=== PATIENT | female | born 1930 | race Caucasian/White ===

== ENCOUNTER 2018-05-10 14:33 | Inpatient (IN) | payer MEDICARE, OTHER ==
[~2018-05-10] VITALS: Ht 165.1 cm; Wt 74.0 kg
[~2018-05-10 14:33] MED LIST: ALLOPURINOL100 MG PO; CYMBALTA30 MG PO; FUROSEMIDE40 MG PO; METOPROLOL SUCC50 MG PO; NORVASC5 MG PO; PACERONE200 MG PO; SODIUM BIC PO
[2018-05-10] MEDS ORDERED: ALBUTEROL/IPRATROPIUM 3 ML NEB NEB ONE (16:00)
[2018-05-10] MEDS ORDERED: AZITHROMYCIN 500MG/NS 250 ML 250 ML IV ONE (16:00)
[2018-05-10] MEDS ORDERED: CEFTRIAXONE SOD 1 GM/NS 50 ML 50 ML IV SCH (16:00)
[2018-05-10] MEDS ORDERED: CEFTRIAXONE SOD 1 GM VIAL IV SCH (16:00)
[2018-05-10 16:06] LABS: BASOPHILS # (AUTO) 0.1 (0.0-0.1); BASOPHILS % 0.6 % (0.0-1.0); EOSINOPHILS # (AUTO) 0.4 (0.0-0.4); EOSINOPHILS % 4.8 % (0.0-6.0); HEMATOCRIT 35.3 % (34.2-44.1); HEMOGLOBIN 11.5 g/dL (12.0-16.0); LYMPHOCYTES # (AUTO) 1.7 (1.0-3.2); LYMPHOCYTES % 19.2 % (18.0-39.1); MEAN CORPUSCULAR HEMOGLOBIN 30.8 pg (28-32); MEAN CORPUSCULAR HGB CONC 32.6 g/dL (31-35); MEAN CORPUSCULAR VOLUME 94.6 fL (81-99); MONOCYTES # (AUTO) 0.7 (0.2-0.8); MONOCYTES % 8.3 % (4.4-11.3); NEUTROPHILS # (AUTO) 5.7 (2.1-6.9); NEUTROPHILS % 66.9 % (38.7-80.0); PLATELET COUNT 265 x10e3/uL (140-360); RED BLOOD COUNT 3.73 x10e6/uL (3.6-5.1); RED CELL DISTRIBUTION WIDTH 14.4 % (11.7-14.4)
--- NOTE | 2018-05-10 16:14 | Diagnostic Imaging Report ---
Examination: Single AP view of the chest. COMPARISON: None available. INDICATION: Difficulty taking deep breaths IMPRESSION: 1. Lines and Tubes: None 2. Lungs are well-inflated. 6 mm nodular density projecting in the right upper lung, which may represent a nodule or calcified granuloma. No consolidation or pulmonary edema. 3. Enlarged cardiac silhouette. Pulmonary vasculature is normal. 4. No acute bony abnormalities. Signed by: Dr. Jorge Shultz M.D. on 05/10/2018 4:10 PM
[2018-05-10 16:26] LABS: ALANINE AMINOTRANSFERASE 17 IU/L (0-55); ALBUMIN 2.8 g/dL (3.5-5.0); ALBUMIN/GLOBULIN RATIO 0.6 (0.8-2.0); ALKALINE PHOSPHATASE 87 IU/L (40-150); BLOOD UREA NITROGEN 44 mg/dL (7-26); BUN/CREATININE RATIO 31 (6-25); CALCIUM 9.1 mg/dL (8.4-10.2); CARBON DIOXIDE 22 mmol/L (22-29); CHLORIDE 101 mmol/L (98-107); CREATINE KINASE 87 IU/L (29-168); CREATININE, SERUM 1.41 mg/dL (0.57-1.11); EST GLOMERULAR FILTRATION RATE 35 ML/MIN (60-); GLUCOSE 95 mg/dL (74-118); LIPASE 44 U/L (8-78); SODIUM 134 mmol/L (136-145)
[2018-05-10] MEDS: SODIUM CHLORIDE 0.9% 1000ML 1,000 ML IV SCH (16:34)
[2018-05-10 16:59] LABS: B-TYPE NATRIURETIC PEPTIDE2 496.6 pg/mL (0-100)
[2018-05-10 17:34] LABS: ABG HCO3 19 mmol/L (23-28); ABG PCO2 33 mmHg (41-51); ABG PH 7.37 (7.31-7.41); ABG PO2 80 mmHg (80-105)
--- OUTSIDE RECORDS SUMMARY | 2018-05-10 19:14 | XMS REPORT ---
Author Author [facility] Address Unknown Phone Unavailable Care Team Providers Care Target Setter Name Role Phone Nicho MALLORY Unavailable Unavailable Problems This patient has no known problems. Allergies, Adverse Reactions, Alerts This patient has no known allergies or adverse reactions. Medications This patient has no known medications. Results Test Description Test Time Test Comments Text Results Atomic Results Result Comments CHEST SINGLE (PORTABLE) 2018-05-10 16:08:00 [place] [id number] Patient Name: SHAWNEE REHMAN MR #: [id number] : 1930 Age/Sex: 87/F Req #: [id number] Adm Physician: Ordered by: BRENTON MALLORY MD Report #: [id number] Location: ER Room/Bed: Procedure: [id number] DX/CHEST SINGLE (PORTABLE) Exam Date: 05/10/18 Exam Time: 1602 REPORT STATUS: Signed Examination: Single AP view of the chest. COMP ARISON: None available. INDICATION: Difficulty taking deep breaths IMPRESSION: 1. Lines and Tubes: None 2. Lungs are well-inflated. 6 mm nodular density projecting in the right upper lung, which may represent a nodule or calcified granuloma. No consolidation or pulmonary edema. 3. Enlarged cardiac silhouette. Pulmonary vasculature is normal. 4. No acute bony abnormalities. Signed by: Dr. Joanne Shultz M.D. on 05/10/2018 4:10 PM Dictated By: JOANNE SHULTZ MD 09 Transcribed By: JANAY on 05/10/181609 COPY TO: BRENTON MALLORY MD
[2018-05-10] MEDS ORDERED: IOPAMIDOL 370 MG/ML 200 ML INFUS..BTL INJ ONE (19:35)
[2018-05-10] MEDS ORDERED: SODIUM CHLORIDE 0.9% 50ML 50 ML ONE (19:35)
--- NOTE | 2018-05-10 20:40 | Diagnostic Imaging Report ---
EXAM: CT Chest WITH contrast 05/10/2018 5:34 PM INDICATION: ^sob ^[id number] ^[id number] COMPARISON: Chest radiograph 05/10/2018 TECHNIQUE: Spiral CT images of the chest were performed from the lung apices through the level of the adrenal glands after the IV contrast administration. Thin section reconstructions were obtained with special concentration on the pulmonary arteries. IV CONTRAST: 100 mL Omnipaque 300 ORAL CONTRAST: None COMPLICATIONS: None RADIATION DOSE: Total DLP: 580.7 mGy*cm Estimated effective dose: (DLP x 0.015 x size factor) mSv CTDIvol has been reviewed. It is below the limits set by the Radiation Protocol Committee (RPC). FINDINGS: LINES/ TUBES: None. PULMONARY ARTERIES: Complete occlusion of the left lower lobe pulmonary artery branch may be related to the collapse of the medial lower lobe. Linear filling defect in the proximal left lower lobe pulmonary artery before the stump. Linear hypodensity within the main left pulmonary artery. No filling defects within the main, right and segmental/subsegmental branches. The main pulmonary artery is enlarged measuring 3.7 cm in diameter. LUNGS AND AIRWAYS: Complete collapse of the medial basilar segment of the left lower lobe with associated mild bronchiectasis. Diffuse soft tissue density filling the medial left lower lobe bronchus. There is occlusion the medial left lower lobe pulmonary artery and vein. To a lesser extent, there are mild bronchiectasis and peribronchial wall thickening in the medial right lower lobe. Advanced bilateral emphysema. Diffuse mosaic attenuation of the lungs likely a combination of air trapping and pulmonary hypertension. Right upper lobe calcified granuloma. PLEURA: The pleural spaces are clear. HEART AND MEDIASTINUM: The thyroid gland is normal. No mediastinal, hilar or axillary lymphadenopathy. Severe dilatation of the right atrium. The right ventricle is normal in size. The left atrium appears also mildly enlarged. There is no pericardial effusion. The thoracic aorta is normal in caliber and associated with moderate calcifications throughout. UPPER ABDOMEN: Unremarkable. BONES: Multilevel degenerative changes of the thoracic spine. SOFT TISSUES: Unremarkable. IMPRESSION: 1. Collapse of the medial left lower lobe with associated bronchiectasis and occlusion of the medial left lower lobe pulmonary artery branch and pulmonary vein. The left lower lobe bronchus is filled with soft tissue density. - Above findings may be chronic from prior radiation treatment or infection with secondary fibrosis. Correlate with patient history. Endobronchial soft tissue density may new and relate to malignancy. 2. Faint filling defects in the left main pulmonary artery suggestive of small non occlusive pulmonary embolus. 3. Enlarged pulmonary artery without RV strain and diffuse mosaic attenuation of the lungs likely due to chronic pulmonary hypertension. Recommend pulmonary consultation for possible bronchoscopy. If prior images become available, comparison would be helpful. Findings were communicated to Dr Chance on 05/10/2018 at 8:20 PM. Signed by: Dr. Sintia Case M.D. on 05/10/2018 8:37 PM
--- NOTE | 2018-05-10 21:04 | NUR ---
HEPARIN DOSAGE INITIAL CALCULATION WAS VERIFIED WITH RASHARD TATUM- PER HOSPITAL PROTOCOL.DR MARIO LAKHANI.
[2018-05-10 21:30] VITALS: BP 117/57
[2018-05-10] MEDS ORDERED: ENOXAPARIN SODIUM INJ 100 MG/ML SYR SC SCH (21:30)
[2018-05-10 21:34] LABS: INR 1.16; PROTHROMBIN TIME 15.8 seconds (11.9-14.5)
[2018-05-10 21:35] LABS: PARTIAL THROMBOPLASTIN TIME 38.3 seconds (23.8-35.5)
[2018-05-10 22:00] VITALS: BP 160/120
[2018-05-10 22:30] VITALS: BP 157/92
[2018-05-10] MEDS ORDERED: apixaban PO (22:51)
[2018-05-10] MEDS ORDERED: ALBUTEROL0.63 MG/3 IH (22:51)
[2018-05-10] MEDS ORDERED: SODIUM BICARBO650 MG PO (22:51)
[2018-05-10 23:00] VITALS: BP 139/97
[2018-05-10] MEDS: ENOXAPARIN SOD INJ 60 MG/0.6 ML SYR SC SCH (23:29)
--- NOTE | 2018-05-10 23:30 | NUR ---
Received from ER to room 191. Admission history, family history & Initial admission assessment completed.
[2018-05-10] MEDS: ACETAMINOPHEN 325 MG TAB PO PRN (23:40)
--- NOTE | 2018-05-10 23:40 | NUR ---
Medicated for c/o headache 08/05.
[2018-05-11] VITALS (19 sets, daily range): BP systolic 110–157; BP diastolic 67–129
[2018-05-11] MEDS ORDERED: INFLUENZA VIRUS VAC SPLIT INJ 0.5 ML SYR IM SCH ×2 (01:15→06:30)
[2018-05-11] MEDS: SODIUM CHLORIDE 0.9% 1000ML 1,000 ML IV SCH ×2 (03:04→12:00)
--- NOTE | 2018-05-11 04:54 | Consultation ---
DATE OF CONSULTATION: May 11, 2018 PULMONARY MEDICINE CONSULT REASON FOR REFERRAL: Abnormal chest radiography. HISTORY: Ms. Ybarra is a pleasant 87-year-old female with abnormal chest radiography. The patient seems to be at baseline level of functioning until 4 days ago. The patient with increasing cough. Secretions have always been present, and she has some difficulty expectorating. The patient was having orthopnea and paroxysmal nocturnal dyspnea. She was having trouble expectorating. Due to increasing difficulty coughing, she presents to the emergency room. In the emergency room, she undergoes emergency CT scan. CT scan demonstrates collapse of medial left lower lobe with associated bronchiectasis and occlusion of the medial left lower lobe pulmonary artery branch and pulmonary vein. Left lower bronchus seems to be filled with soft tissue density possibly. There is faint filling defects of the left main pulmonary artery suggestive of small nonocclusive pulmonary emboli. There is enlarged pulmonary artery without RV strain and diffuse mosaic attenuation of the lungs possibly due to chronic pulmonary hypertension. The patient is having a lot of difficulty breathing. Of note, she has chronic atrial fibrillation, and she was on Eliquis anticoagulation as an outpatient. However, due to complexity, she is admitted into the ICU. There is chronic allergies. Note, there is asthma. No . 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 She was exposed to for 18 years of life. PAST MEDICAL HISTORY: Hypertension, coronary artery disease, history of bladder cancer in about 2004, status post right nephrectomy and bladder resection. It was known that later on she had to go a 2nd round of surgery as her condition reoccurred. She received radiation therapy and chemotherapy. Not known to have distal metastasis per son or the patient to the best of their knowledge. MEDICATIONS: List reviewed per electronic record. Current medications include ceftriaxone, enoxaparin, which is covering for the apixaban for now. She is on IV fluids. Other medicines per record. ALLERGIES: TETRACYCLINE AND SULFA. SOCIAL HISTORY: No smoking. No drinking. No drugs. She was born in [place], but lived the first 18 years of her life in [place], [place], and then moved back to [place]. She has a supportive family, including her . FAMILY HISTORY: Noncontributory. REVIEW OF SYSTEMS GENERAL: No weight changes. OPHTHALMOLOGY: No double vision. ENT: No mouth ulcers. ENDOCRINE: No thyroid disease known. LUNGS: Hemoptysis. Reportedly, chronic atelectasis may be present. CARDIOVASCULAR: No heart attacks recent. GI: No diarrhea. GI: No blood in urine. She has an ostomy bag for urine. DERMATOLOGIC: No rash. NEUROLOGIC: No seizures. PSYCHIATRIC: No depression. PHYSICAL EXAMINATION VITALS: Afebrile. Vital signs noted per electronic record. Currently, on room air oxygen at 96% oxygen saturation. She has monitor hooked up. GENERAL: She has difficulty expectorating and gets red from inability to expectorate. In bed wide awake. HEENT: Normocephalic and atraumatic. NECK: Supple. Throat midline. LUNGS: Bilateral air entry is good. Moderate to large rhonchi. No wheezes. CARDIOVASCULAR: S1 and S2. No murmurs, rubs or gallops. ABDOMEN: Soft and nontender. Right-sided urostomy. INTEGUMENT: No rash. No purpura. EXTREMITIES: No clubbing. No cyanosis. No edema. LABS: Potassium 4, BUN 44, creatinine 1.4. White count 9, hematocrit 35 and platelets 265,000. IMPRESSION AND PLAN 1. Abnormal chest radiography: Left chronic atelectasis not otherwise specified. Left elevated hemidiaphragm associated. 2. Focal bronchiectasis, left lower lobe. 3. Abnormal chest radiography: Mild not otherwise specified. 4. Abnormal chest radiography: A 36 mm main pulmonary artery, proximal pulmonary hypertension. 5. Abnormal chest radiography: Endobronchial debris versus mass filling. 6. Respiratory distress. 7. Inability to expectorate: Insufficient cough likely due to associated condition of bronchitis versus bronchomalacia versus other. 8. Chronic allergies. 9. History of latent tuberculosis infection. 10. History of exposure first 18 years of life. 11. Chronic kidney disease. 12. Atrial fibrillation, chronic. 13. Coronary artery disease. 14. Hypertension. 15. History of bladder carcinoma: Status post multiple surgeries, radiation and chemo probably to the abdomen. At this time, will continue current treatment. Will view records when available regarding the lung condition. If chronic atelectasis is there, in no choi to instrument it, although consideration should be made by her [facility] doctor who we will talk to based on the patient's length of stay. The patient does have airway secretions and she has difficulty expectorating these. Will consider bronchoscopy. The patient should have CPT to help expectorations. Bronchodilators will be given. She needs consideration for outpatient CPT and breathing treatments, which she is not on to help enhance expectoration chronically. Eventually, we want to know why she has bronchitis, which could be either allergic bronchitis versus related to previous infection, related to chemotherapy or radiation therapy that we do not know about regarding any thoracic window of radiation versus secondary to exposure and other etiologies. Regarding the pulmonary artery defect suggestive of clot, the patient should continue her blood thinner at therapeutic doses, although for now we will switch to Lovenox for the near term in case any procedures are warranted. Thank you very much, Dr. De La Rosa, for allowing me a chance to participate in the care of Ms. Ybarra. Do not hesitate to contact me if I can help in any way. Job#: [id number] HERNESTO
--- NOTE | 2018-05-11 06:30 | NUR ---
Flu vaccine given.
--- NOTE | 2018-05-11 06:46 | NUR ---
Semi hard BM per bedpan.
[2018-05-11] MEDS: IPRATROPIUM BROMIDE 0.02% 2.5 ML NEB NEB SCH ×3 (07:05→19:05)
[2018-05-11] MEDS: ALBUTEROL SULF 0.083% NEB SOLN 3 ML NEB NEB PRN ×3 (07:05→19:05)
[2018-05-11] MEDS ORDERED: PREDNISONE 20 MG TAB PO ONE (08:00)
[2018-05-11] MEDS: ENOXAPARIN SOD INJ 60 MG/0.6 ML SYR SC SCH ×2 (08:31→21:30)
[2018-05-11] MEDS: AZITHROMYCIN 500MG/NS 250 ML 250 ML IV SCH (16:10)
--- NOTE | 2018-05-11 16:29 | NUR ---
Early Childhood Teacher to bedside to discuss plan of care with patient/family. CM/SW role and care transitions discussed. Anticipated discharge plan discussed along with duration of care. CM/SW discussed patients right to make decisions in care. CM/SW work hours given. Patient lives: PATIENT LIC=VES WITH [facility] IN [place], [place] Admit/Transfer: ED POA/Emergency contact: - PETER REHMAN: [phone]; DAUGHTER FLAKO BELTRAN WHO LIVES IN [place], [place] SUPPORT SYSTEM [phone] Current/Previous Home Health: NONE; PATIENT AMBULATORY PRIOR TO ADMISSION PCP/Follow-up Care: YES Current/Previous DME: NONE Other Services: NONE Employment Status: UNEMPLOYED/ RETIRED Areas of Concerns: RESPIRATORY CARE Referral Needs: NONE AT THIS TIME Education Needs: RESPIRATORY CARE IMM/MELGAR given and signed (if applicable): NO Goal for discharge: PATIENT WANTS TO DISCHARGE HOME WITH INDEPENDENTLY WITH NO NEEDS CM left business card at the bedside with contact information. Name and number was also written on the patients whiteboard. Patient verbalized understanding of discussion. CM will follow-up with ongoing discharge and transition of care needs.
[2018-05-11] MEDS: ACETAMINOPHEN 325 MG TAB PO PRN (16:33)
[2018-05-11] MEDS: CEFTRIAXONE SOD 1 GM/NS 50 ML 50 ML IV SCH (17:21)
--- NOTE | 2018-05-11 19:30 | NUR ---
Received patient awake and alert, hard of hearing. Vitals stable, awaiting transfer out of the unit, no complaints raised
--- NOTE | 2018-05-11 23:00 | NUR ---
Report called [facility] to [facility], Patient transferred on Tele to room 299, hemodynamically stable.
--- NOTE | 2018-05-11 23:30 | NUR ---
The Patient was transferred via stretcher to the unit. Laying in bed, AAOx4. Denies any pain. Upon skin assessment abrasion on the back were noticed. Daughter reported those were from the laser removal used in her manager port. Scattered small discoloration to left arm. Abrasion on the right bruno, and Second right toe. There is also discoloration purple in color on the bottom of foot. Patient reported hitting her foot while taking a bath at home. Denies any recent falls. Call light within reach, bed low, and wheels locked. No other complaints.
[2018-05-12] VITALS (8 sets, daily range): BP systolic 145–182; BP diastolic 74–94
[2018-05-12] MEDS: IPRATROPIUM BROMIDE 0.02% 2.5 ML NEB NEB SCH ×4 (01:00→18:55)
[2018-05-12] MEDS: ALBUTEROL SULF 0.083% NEB SOLN 3 ML NEB NEB PRN ×3 (07:30→18:55)
--- NOTE | 2018-05-12 07:45 | NUR ---
PAGED DR. BENITEZ TO INFORM HIM OF PATIENT'S ELEVATED BP, AND TO SEE IF HOME MEDICATIONS COULD BE CONTINUED. ANSWERING SERVICE WILL PAGE .
--- NOTE | 2018-05-12 07:55 | NUR ---
RECEIVED PATIENT RESTING IN BED. NO ACUTE DISTRESS NOTED. DAUGHTER AT BEDSIDE. CALL LIGHT WITHIN REACH. BED IN THE LOWEST POSITION. BED ALARM ON.
[2018-05-12] MEDS ORDERED: APIXAB 2.5 MG TABLET PO SCH (09:00)
[2018-05-12] MEDS ORDERED: AMIODARONE HCL 200 MG TAB PO SCH (09:00)
[2018-05-12] MEDS ORDERED: SODIUM BICARBONATE 650 MG TAB PO SCH (09:00)
[2018-05-12] MEDS ORDERED: LOSARTAN POTASS25 MG PO (09:09)
[2018-05-12] MEDS: FUROSEMIDE 40 MG TAB PO SCH (10:01)
[2018-05-12] MEDS: ALLOPURINOL 100 MG TAB PO SCH (10:01)
[2018-05-12] MEDS: LOSARTAN POTASSIUM 25 MG TAB PO SCH (10:01)
[2018-05-12] MEDS: DULOXETINE HCL 30 MG DELAYED RELEASE PO SCH (10:01)
[2018-05-12] MEDS: METOPROLOL SUCCINATE 50 MG TAB XL PO SCH ×2 (10:02→16:43)
[2018-05-12] MEDS: ENOXAPARIN SOD INJ 60 MG/0.6 ML SYR SC SCH (10:02)
[2018-05-12] MEDS: APIXAB 2.5 MG TABLET PO SCH ×2 (10:02→16:43)
[2018-05-12] MEDS: ACETAMINOPHEN 325 MG TAB PO PRN ×2 (10:37→21:32)
--- NOTE | 2018-05-12 13:40 | NUR ---
RT CAME TO NURSE IN REGARDS TO CPT ORDER AND PATIENT CT IMPRESSION OF FAINT FILLING DEFECTS IN THE LEFT MAIN PULMONARY SUGGESTIVE OF SMALL NON OCCLUSIVE PULMONARY EMBOLUS. CALLED DR. PRIETO TO SEE IF HE WANTED PATIENT TO STILL DO CPT. PER DR. PRIETO TO LET RT KNOW TO DO THE ADEQUATE CPT, THEY CAN START WITH ACAPELLA. RT NOTIFIED.
[2018-05-12] MEDS ORDERED: SODIUM CHLORIDE 0.9% 250ML 250 ML ONE (15:24)
[2018-05-12] MEDS: AZITHROMYCIN 500MG/NS 250 ML 250 ML IV SCH (15:30)
[2018-05-12] MEDS: SALINE 0.65% NAS SOLN 1 SPRAY BTL SCH ×2 (15:55→21:29)
[2018-05-12] MEDS: CEFTRIAXONE SOD 1 GM/NS 50 ML 50 ML IV SCH (16:43)
--- NOTE | 2018-05-12 19:25 | NUR ---
REPORT GIVEN TO ONCOMING NURSE. PATIENT IS IN RESTING IN BED, NO ACUTE DISTRESS NOTED. DAUGHTER AT BEDSIDE. CALL LIGHT WITHIN REACH. BED IN THE LOWEST POSITION. BED ALARM ON.
[2018-05-12] MEDS ORDERED: METOPROLOL SUCCINATE 50 MG TAB XL PO SCH (21:00)
[2018-05-12] MEDS: AMLODIPINE BESYLATE 5 MG TAB PO SCH (21:32)
[2018-05-12] MEDS: SODIUM BICARBONATE 650 MG TAB PO SCH (21:32)
[2018-05-13] VITALS (7 sets, daily range): BP systolic 129–146; BP diastolic 57–97
--- NOTE | 2018-05-13 04:57 | Progress Note ---
DATE: May 12, 2018 PULMONARY MEDICINE PROGRESS NOTE SUBJECTIVE: Ms. Ybarra was seen and examined at bedside. She is continuing to have lot of large phlegm that is difficult to expectorate. RT is working with her to get the CPT done, the chest physiotherapy to help mobilize secretions. She has nasal congestion and sinus congestion. She is eating and having bowel movements. REVIEW OF SYSTEMS: No diarrhea, no headaches. OBJECTIVE VITALS: Afebrile. Vital signs noted per electronic record. GENERAL: In no acute distress, alert and calm. HEENT: Normocephalic and atraumatic. NECK: Supple. Throat midline. LUNGS: Bilateral air entry with good air entry. Moderate rhonchi. Small wheezes. CARDIOVASCULAR: S1, S2. No murmurs, rubs or gallops. ABDOMEN: Soft and nontender. EXTREMITIES: No clubbing. No cyanosis. There is no edema. INTEGUMENT: No rash. No purpura. LABS: No new updates. IMPRESSION 1. Abnormal chest x-ray, left chronic atelectasis with associated left hemidiaphgram elevation. 2. Focal bronchiectasis, left lower lobe, likely secondary to chronically destroyed lung. 3. Abnormal chest radiography, mild pneumonitis and retained airway secretions. 4. Abnormal chest radiography, 36 mm main pulmonary artery, possible pulmonary hypertension. 5. Abnormal chest radiography, endobronchial debris versus mass filling. 6. History of bladder carcinoma as stated previously. 7. Respiratory distress, much better. 8. Difficulty with expectorating, likely chronic bronchitis, bronchomalacia and bronchiectasis conglomerate. 9. Chronic allergies. 10. History of latent tuberculosis infection. 11. History of biofield exposure in the first 18 years of life. 12. Chronic kidney disease. 13. Atrial fibrillation. PLAN: Continue to try CPT aggressively. We will see if we can help get the patient expectorating. Continue bronchodilator treatments. Add [place] nasal spray saline. I notified her we can add allergy sprays if needed. Continue to mobilize the patient with walker as feasible. Follow up labs in a couple of days. Job#: [id number] PSO
[2018-05-13] MEDS: ALBUTEROL SULF 0.083% NEB SOLN 3 ML NEB NEB PRN ×4 (07:00→19:25)
[2018-05-13] MEDS: IPRATROPIUM BROMIDE 0.02% 2.5 ML NEB NEB SCH ×4 (07:00→19:25)
--- NOTE | 2018-05-13 07:25 | NUR ---
RECEIVED PATIENT RESTING IN BED. NO S/S OF DISTRESS NOTED. DAUGHTER AT BEDSIDE. CALL LIGHT WITHIN REACH. BED IN THE LOWEST POSITION. BED ALARM ON.
[2018-05-13] MEDS: ALLOPURINOL 100 MG TAB PO SCH (09:30)
[2018-05-13] MEDS: METOPROLOL SUCCINATE 50 MG TAB XL PO SCH ×2 (09:30→17:23)
[2018-05-13] MEDS: DULOXETINE HCL 30 MG DELAYED RELEASE PO SCH (09:30)
[2018-05-13] MEDS: FUROSEMIDE 40 MG TAB PO SCH (09:30)
[2018-05-13] MEDS: APIXAB 2.5 MG TABLET PO SCH ×2 (09:30→17:23)
[2018-05-13] MEDS: SALINE 0.65% NAS SOLN 1 SPRAY BTL SCH ×3 (09:30→20:46)
[2018-05-13] MEDS: LOSARTAN POTASSIUM 25 MG TAB PO SCH (09:30)
--- NOTE | 2018-05-13 13:00 | NUR ---
DR. BENITEZ ROUNDING AT THIS TIME. PATIENT NOTIFIED HIM OF BRUISE/PAIN ON RIGHT KNEE. MRI ORDERED.
[2018-05-13] MEDS: AZITHROMYCIN 500MG/NS 250 ML 250 ML IV SCH (16:17)
[2018-05-13] MEDS: ACETAMINOPHEN 325 MG TAB PO PRN (16:24)
[2018-05-13] MEDS ORDERED: VANCOMYCIN 1GM/NS 250 ML 250 ML IV NR (16:30)
[2018-05-13] MEDS: CEFTRIAXONE SOD 1 GM/NS 50 ML 50 ML IV SCH (17:23)
--- NOTE | 2018-05-13 17:23 | Progress Note ---
DATE: May 13, 2018 PULMONARY MEDICINE PROGRESS NOTE SUBJECTIVE: Ms. Ybarra was seen and examined at bedside. She is still having a lot of difficulty expectorating. She has not had all her CPT episodes as she has been busy when respiratory had been in the room. It is hard to know if acapella is working, but as of yet it is failing therapy. Patient has [place] in with reasonable urine output. She is eating well, 2 liters per minute by nasal cannula. REVIEW OF SYSTEMS: With no headaches, no bleeding. OBJECTIVE VITALS: Afebrile. Vital signs noted per electronic record. GENERAL: In no acute distress, alert, calm, and talking. HEENT: Normocephalic, atraumatic. NECK: Supple. Throat midline. LUNGS: Bilateral air entry is good with moderate wheezes, moderate rhonchi still when coughing. CARDIOVASCULAR: S1, S2. No murmurs, rubs, or gallops. ABDOMEN: Soft, nontender. EXTREMITIES: No clubbing. No cyanosis. There is no edema. INTEGUMENT: No rash or purpura. LABS: No new updates. Sputum culture with Staph aureus, some gram-negative rods. IMPRESSION AND PLAN 1. Chronic pulmonary atelectasis reported. 2. Endobronchial filling defect, either secretions that were retained versus other solid opacity/nodule. 3. Suggestive pulmonary hypertension. 4. Small nonocclusive pulmonary embolism. 5. Bronchiectasis with exacerbation, possible pneumonia. 6. Weakness. 7. History of bladder carcinoma. 8. Chronic kidney disease. Continue aggressive CPT. I discussed with respiratory that if the acapella is failing, we need to go to best therapy. I tried manual percussion also and there was poor response of this. Continue antibiotics and will add some vancomycin while waiting the staphylococcus sensitivities. Consideration could be the bronchoscope the patient for therapeutic purposes plus also for diagnostic purposes of the atelectatic area where the nodule or endobronchial debris is. Continue diuretics. Blood thinner still ongoing. Job#: [id number] DIMITRIS
--- NOTE | 2018-05-13 19:07 | NUR ---
REPORT GIVEN TO ONCOMING NURSE. WALKING ROUNDS DONE, PATIENT IS RESTING IN BED. NO ACUTE DISTRESS NOTED. CALL LIGHT WITHIN REACH. BED IN THE LOWEST POSITION.
[2018-05-13] MEDS: AMLODIPINE BESYLATE 5 MG TAB PO SCH (20:46)
[2018-05-13] MEDS: SODIUM BICARBONATE 650 MG TAB PO SCH (20:47)
[2018-05-14] VITALS (8 sets, daily range): BP systolic 140–164; BP diastolic 79–85
[2018-05-14] MEDS: IPRATROPIUM BROMIDE 0.02% 2.5 ML NEB NEB SCH ×4 (00:40→19:28)
[2018-05-14] MEDS: ALBUTEROL SULF 0.083% NEB SOLN 3 ML NEB NEB PRN (00:40)
[2018-05-14] MEDS: ACETAMINOPHEN 325 MG TAB PO PRN (01:47)
[2018-05-14 07:34] LABS: BASOPHILS % 0.4 % (0.0-1.0); EOSINOPHILS # (AUTO) 0.4 (0.0-0.4); EOSINOPHILS % 6.2 % (0.0-6.0); HEMATOCRIT 31.6 % (34.2-44.1); HEMOGLOBIN 10.3 g/dL (12.0-16.0); LYMPHOCYTES # (AUTO) 1.6 (1.0-3.2); LYMPHOCYTES % 22.5 % (18.0-39.1); MEAN CORPUSCULAR HGB CONC 32.6 g/dL (31-35); MEAN CORPUSCULAR VOLUME 95.2 fL (81-99); MONOCYTES # (AUTO) 0.7 (0.2-0.8); MONOCYTES % 10.3 % (4.4-11.3); NEUTROPHILS # (AUTO) 4.2 (2.1-6.9); NEUTROPHILS % 60.3 % (38.7-80.0); PLATELET COUNT 182 x10e3/uL (140-360); RED BLOOD COUNT 3.32 x10e6/uL (3.6-5.1); RED CELL DISTRIBUTION WIDTH 14.9 % (11.7-14.4)
--- NOTE | 2018-05-14 07:45 | NUR ---
patient resting in bed, AAOx3, not in any distress, tolerated break fast, family at bed side
[2018-05-14 07:52] LABS: ALBUMIN 2.5 g/dL (3.5-5.0); ALBUMIN/GLOBULIN RATIO 0.6 (0.8-2.0); CALCIUM 8.7 mg/dL (8.4-10.2); CREATININE, SERUM 1.08 mg/dL (0.57-1.11); MAGNESIUM 1.8 MG/DL (1.3-2.1); PHOSPHORUS 3.4 MG/DL (2.3-4.7)
[2018-05-14] MEDS: ALLOPURINOL 100 MG TAB PO SCH (08:14)
[2018-05-14] MEDS: DULOXETINE HCL 30 MG DELAYED RELEASE PO SCH (08:14)
[2018-05-14] MEDS: FUROSEMIDE 40 MG TAB PO SCH (08:14)
[2018-05-14] MEDS: LOSARTAN POTASSIUM 25 MG TAB PO SCH (08:14)
[2018-05-14] MEDS: METOPROLOL SUCCINATE 50 MG TAB XL PO SCH ×2 (08:14→17:16)
[2018-05-14] MEDS: APIXAB 2.5 MG TABLET PO SCH ×2 (08:14→17:18)
[2018-05-14] MEDS: SALINE 0.65% NAS SOLN 1 SPRAY BTL SCH ×3 (08:14→22:18)
--- NOTE | 2018-05-14 10:04 | Diagnostic Imaging Report ---
PROCEDURE: X-RAY CHEST, TWO VIEWS COMPARISON: CT scan of the chest dated 05/10/2018. INDICATIONS: SHORTNESS OF BREATH FINDINGS: LUNGS: Mild pulmonary vascular congestion. Left retrocardiac opacity. PLEURA: Small bilateral pleural effusions. HEART & MEDIASTINUM: The heart is within normal size-limits. Calcification within the thoracic aorta. BONES & SOFT TISSUES: No acute findings. CONCLUSION: 1. Cardiomegaly with mild pulmonary vascular congestion. 2. Left retrocardiac opacity. 3. Small bilateral pleural effusions. Brando Moran D.O. Dictated by: Brando Moran D.O. on 05/14/2018 at 10:14 Electronically approved by: Brando Moran D.O. on 05/14/2018 at 10:14
[2018-05-14 13:18] LABS: BASOPHILS % 0.5 % (0.0-1.0); EOSINOPHILS # (AUTO) 0.4 (0.0-0.4); EOSINOPHILS % 4.8 % (0.0-6.0); HEMATOCRIT 35.5 % (34.2-44.1); HEMOGLOBIN 11.4 g/dL (12.0-16.0); LYMPHOCYTES # (AUTO) 1.4 (1.0-3.2); LYMPHOCYTES % 18.7 % (18.0-39.1); MEAN CORPUSCULAR HEMOGLOBIN 30.6 pg (28-32); MEAN CORPUSCULAR HGB CONC 32.1 g/dL (31-35); MEAN CORPUSCULAR VOLUME 95.4 fL (81-99); MONOCYTES # (AUTO) 0.6 (0.2-0.8); MONOCYTES % 8.1 % (4.4-11.3); NEUTROPHILS % 67.6 % (38.7-80.0); PLATELET COUNT 203 x10e3/uL (140-360); RED BLOOD COUNT 3.72 x10e6/uL (3.6-5.1); RED CELL DISTRIBUTION WIDTH 14.9 % (11.7-14.4)
[2018-05-14] MEDS ORDERED: VANCOMYCIN 750MG/NS 150ML IVPB 150 ML IV ONE (14:00)
--- NOTE | 2018-05-14 16:05 | Diagnostic Imaging Report ---
TECHNIQUE: Magnetic resonance imaging of the RIGHT KNEE was performed WITHOUT injected contrast. HISTORY: Pain, hit knee on bed COMPARISON: None available. FINDINGS: LIGAMENTS AND TENDONS: ACL: No normal intact fibers are visible. PCL: Intact Collateral ligaments: Intact Iliotibial band: Unremarkable Popliteal tendon: Intact Extensor mechanism: Intact JOINT: Menisci: Medial: Diffuse attenuation, with contour irregularity most notably of the tibial articular surface of the body and posterior horn. Mild peripheral extrusion of the body remnants. Lateral: Severe attenuation of the anterior horn and to a lesser extent the free margin of the body and posterior horn, peripheral extrusion of the body. Articular Cartilage: Medial Compartment: High-grade to full-thickness erosions of the weightbearing cartilage. Lateral Compartment: Intermediate to high-grade erosions with full-thickness fissuring of the weightbearing cartilage. Patellofemoral Compartment: Full-thickness erosions, most notably the medial patellar facet. Joint Fluid: Moderate nonspecific joint effusion with synovitis and a mildly distended Morgan's cyst. BONES: No focal or infiltrative bone marrow replacing abnormality. No acute fracture. SOFT TISSUES: A mildly lobulated, mildly heterogeneous 3.6 cm (AP) x 1.6 cm (ML) x 2.7 cm (CC) superficial fluid intensity focus overlying the lateral aspect of the distal femur, just superficial to the distal iliotibial band. Moderate regional soft tissue edema. Enhancement characteristics cannot be assessed. IMPRESSION: 1. Findings compatible with a superficial soft tissue hematoma and regional soft tissue contusion. 2. Patellofemoral and lateral compartment predominant tricompartmental degenerative changes, including degenerative tearing of the menisci. 3. Moderate nonspecific joint effusion with synovitis and associated small Morgan's cyst. Signed by: Dr. Ignacio Torres D.O., M.M.M. on 05/14/2018 4:02 PM
[2018-05-14] MEDS: AZITHROMYCIN 500MG/NS 250 ML 250 ML IV SCH (16:20)
[2018-05-14] MEDS: CEFTRIAXONE SOD 1 GM/NS 50 ML 50 ML IV SCH (17:20)
--- NOTE | 2018-05-14 19:40 | NUR ---
Bedside rounds complete with morning nurse. Pt lying in bed 45 degrees. Alert to name. Denies pain at this time. Family at bedside. No acute distress noted. Call may within reach.
[2018-05-14] MEDS: SODIUM BICARBONATE 650 MG TAB PO SCH (22:18)
[2018-05-14] MEDS: AMLODIPINE BESYLATE 5 MG TAB PO SCH (22:18)
--- NOTE | 2018-05-14 23:49 | Progress Note ---
DATE: May 14, 2018 PULMONARY MEDICINE PROGRESS NOTE SUBJECTIVE: Ms. Ybarra was seen and examined at bedside. She continues with slow progress. However, her lung exam is better today. She denies, however, knowledge of coughing up secretions. Culture of sputum is still pending. REVIEW OF SYSTEMS: No headaches, no diarrhea. OBJECTIVE VITALS: Afebrile. Vital signs noted per electronic record. GENERAL: In no acute distress, alert, calm. HEENT: Normocephalic, atraumatic. NECK: Supple. Throat midline. LUNGS: Bilateral air entry mild wheezes, mild rhonchi. CARDIOVASCULAR: S1, S2. No murmurs, rubs or gallops. ABDOMEN: Soft, nontender. EXTREMITIES: No clubbing, no cyanosis. There is no edema. INTEGUMENT: No rash or purpura. LABS: 27 BUN, 1.1 creatinine. 7 white count, 32 hematocrit. IMPRESSIONS AND PLAN 1. Pneumonia. 2. Chronic left lower lobe atelectasis. 3. Bronchiectasis associated with left lower lobe atelectasis, etiology unclear. 4. Endobronchial luminal filling, either mucoid debris versus other particles or mass. 5. Weakness, mostly nonambulatory status recently. 6. History of latent tuberculosis in youth. 7. Treat for possible asthma with exacerbation. Continue as an outpatient try to mobilize. Continue CPT. Exam is improving slowly. Await the microbiologic culture data of the sputum. Give another dose of vancomycin in the meanwhile. Continue treatment for possible pneumonia with definite exacerbation of bronchitis/bronchiectasis. Continue apixaban for embolism of lungs. Job#: [id number] CQ
[2018-05-15] VITALS: BP 146/75
[2018-05-15] MEDS: IPRATROPIUM BROMIDE 0.02% 2.5 ML NEB NEB SCH ×2 (01:03→06:52)
[2018-05-15 04:00] VITALS: BP 159/74
[2018-05-15 08:21] VITALS: BP 163/77
[2018-05-15] MEDS: APIXAB 2.5 MG TABLET PO SCH (09:00)
[2018-05-15] MEDS: DULOXETINE HCL 30 MG DELAYED RELEASE PO SCH (09:00)
[2018-05-15] MEDS: LOSARTAN POTASSIUM 25 MG TAB PO SCH (09:00)
[2018-05-15] MEDS: METOPROLOL SUCCINATE 50 MG TAB XL PO SCH (09:00)
[2018-05-15] MEDS: ALLOPURINOL 100 MG TAB PO SCH (09:00)
[2018-05-15] MEDS: FUROSEMIDE 40 MG TAB PO SCH (09:00)
[2018-05-15] MEDS: SALINE 0.65% NAS SOLN 1 SPRAY BTL SCH (11:52)
[2018-05-15 12:07] VITALS: BP 139/83
[2018-05-15] MEDS ORDERED: CEFTIN PO (12:44)
--- NOTE | 2018-05-15 12:49 | NUR ---
Patient was sitting in wc with present when [employer] arrived. She said she is discharging and does not need any more practice with the sliding board. Carla Ojeda PTA/Supervising Gianna GODOY Addendum: 05/15/18 at 1250 by Carla Ojeda PTA Amended: Links added.
[2018-05-15] MEDS ORDERED: SYMBICORT 80-10.2 GM INH (12:53)
[2018-05-15] MEDS ORDERED: PROAIR HFA INH8.5 GM PO (12:53)
--- NOTE | 2018-05-15 13:20 | NUR ---
PT DISCHARGED HOME IV DCD WITHOUT REDNESS OR SWELLING,PRECRIPTIONS AND INSTRUCTIONS GIVEN COPY ON CHART.PT TRANSPORTED TO [facility] IN OWN W/C.
[2018-05-15] MEDS ORDERED: PIPERACILLIN/TAZO 4.5 GM 100 ML IV SCH (14:00)
--- NOTE | 2018-05-15 14:04 | Progress Note ---
DATE: May 15, 2018 PULMONARY MEDICINE PROGRESS NOTE SUBJECTIVE: Mrs. Ybarra was seen and examined at bedside. Liters in 1.3, liters out 4.4. One bowel movement. She has sputum that demonstrated sensitive staph but also pseudomonas. Patient is steadily improving. Her appetite is better. She is mobilizing better in her chair. REVIEW OF SYSTEMS: No headaches, no rash. OBJECTIVE VITAL SIGNS: Afebrile. Vital signs noted per electronic record. GENERALLY: No acute distress, alert and calm. HEENT: Normocephalic, atraumatic. NECK: Supple. Throat midline. LUNGS: Bilateral air entry, rare rhonchi, a few wheezes. CARDIOVASCULAR: S1 and S2. No murmurs, rubs or gallops. ABDOMINAL: Soft, nontender. EXTREMITIES: No clubbing, no cyanosis. There is no edema. INTEGUMENT: No rash. No purpura. LABS: BUN 27, creatinine 1.1. White count 7. IMPRESSION AND PLAN 1. Respiratory distress, resolved. 2. Bronchiectasis with exacerbation. 3. Chronic bronchitis. 4. History of allergies, possible asthma. 5. History of biofuel exposure in youth. 6. History of bladder cancer status post radiation and chemotherapy and surgeries. 7. Weakness/debility. Discharge planning is underway. I have written for inhalers. Continue bronchodilators. Patient had reasonable expectoration of secretions. She can go home. I will follow as outpatient. Job#: [id number] EV
--- NOTE | 2018-06-28 01:08 | Discharge Summary ---
CHIEF COMPLAINT: Increasing shortness of breath with chest congestion. FINAL DIAGNOSES: 1. Pulmonary fibrosis. 2. History of carcinoma of bladder. 3. Bruised right knee. DISPOSITION: Home. Qivkn[age][id number]-old female with known history of COPD, history of bladder CA status post radiation treatment, brought to the ER with 2-to 3-day history of increased shortness of breath, chest congestion, frequent nonproductive cough. Underwent review and evaluation in the emergency room. Chest was demonstrating inspiratory crackles and expiratory wheezes. X-rays in the ER, chest x-ray and CT scan of chest revealed middle lobe collapse and possible mass in the left lower lung. Admission was made for treatment regarding respiratory distress, left middle lobe collapse, questionable pneumonia, questionable CA of lung, questionable radiation fibrosis. Will begin nebulizer treatments. Will begin IV antibiotics. Home medications will continue. Patient was on the med-surg floor, was on a cardiac diet. Was started on respiratory treatment, started on antibiotics of azithromycin and ceftriaxone. The daily medications were being copied and continued and the patient was administered a flu vaccine. Laboratory studies were showing stable electrolytes. Kidney functions, BUN 44, creatinine 1.41. Glucose 95. CBC stable. With continuation of stay, medications were being further managed. Right knee was showing a large, firm warm, located in lateral aspect of the right knee. Request for ultrasound of the right knee was directed. As she was continuing, the swelling of the right knee was decreasing, she is responding well to nebulizer treatments. MRI of right knee was also being requested. It is determined that she had a bruise to the right knee. She was reaching her potential recovery. Arrangements were being made for discharge. She will be taken off her IV antibiotics, will be switched over to p.o. protocols once discharged, and she was able to be released home on May 15, 2018 in good condition. EKGs are showing atrial fib, septal infarct, age undetermined. With discharge, she will continue on her current diet. Arrangements will be made with case management for DME of a slide board for transfer as well as setting the patient up for home health. No drains or Cavanaugh are needed. Activity level as directed by myself. FOLLOWUP CARE: She will be returning back to my office within 2 weeks. She was given a prescription for Ceftin 250 one tablet p.o. b.i.d. She will also continue on albuterol sulfate inhalers twice a day, allopurinol 100 mg daily, Pacerone 200 mg daily, Norvasc 2.5 mg at bedtime, apixaban 2.5 mg twice a day, Cymbalta 60 mg daily, furosemide 60 mg daily, losartan potassium 25 mg daily, metoprolol succinate 50 mg twice a day, sodium bicarb 650 once at bedtime. Dictated By: FRANK Bonilla Job#: [id number]
== END 2018-05-15 13:17 | disposition home or self-care (01) | DRG 191 ==
LOC: ER 14:33 → ERHOLD 19:12 → ICU 22:15 → MED/SURG3 05-11 23:27 → OBSVTOIN 05-12 08:44
DX: J47.1 Bronchiectasis with (acute) exacerbation (principal); J98.11 Atelectasis; J45.901 Unspecified asthma with (acute) exacerbation; R91.8 Other nonspecific abnormal finding of lung field; R06.03 Acute respiratory distress; J84.10 Pulmonary fibrosis, unspecified; Z85.51 Personal history of malignant neoplasm of bladder; J18.9 Pneumonia, unspecified organism; J47.0 Bronchiectasis with acute lower respiratory infection; R76.11 Nonspecific reaction to tuberculin skin test without active tuberculosis; I27.20 Pulmonary hypertension, unspecified; I48.91 Unspecified atrial fibrillation; Z79.01 Long term (current) use of anticoagulants; I25.10 Atherosclerotic heart disease of native coronary artery without angina pectoris; I48.2 Chronic atrial fibrillation
CPT/HCPCS: 36415; 36600; 71045; 71046; 71260; 80053; 82550; 82553; 82805; 83605; 83690; 83735; 83880; 84100; 84484; 85025; 85610; 85730; 87040; 87070; 87186; 87205; 93005; 94640; 94667; 97139; 99284; G0378; J0456; J0696; J1650; J2543; J3370; J7030; J7050; J7512; Q9967